=== PATIENT | male | born 1975 | race Caucasian/White ===

== ENCOUNTER 2017-12-14 15:49 | Emergency (ER) | payer OTHER ==
[2017-12-14 16:11] VITALS: BP 145/100; PULSE 103; RESP 18; TEMP 98.2; O2SAT 98
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
== END 2017-12-14 16:58 | disposition home or self-care (01) ==
LOC: C.ER 15:49
DX: N48.89 Other specified disorders of penis (principal)

== ENCOUNTER 2018-10-06 09:32 | Emergency (ER) | payer OTHER ==
[2018-10-06 09:34] VITALS: BMI 29.7
[2018-10-06 09:40] VITALS: RESP 18
[2018-10-06] MEDS ORDERED: Sodium Chloride 0.9% 1,000 ML IV STA (10:27)
[2018-10-06] MEDS ORDERED: Sodium Chloride 0.9% 250 ML IV ONE (10:48)
[2018-10-06 11:01] LABS: HEMOGLOBIN 16.9 g/dL (12.0-18.0); LYMPH # 1.5 K/uL (1.0-4.3); LYMPH % 32.8 % (20.0-40.0); MEAN CELL VOLUME 82.3 fL (80.0-94.0); MEAN CORPUSCULAR HEMOGLOBIN 27.6 pg (27.0-31.0); MEAN CORPUSCULAR HGB CONC 33.6 g/dL (33.0-37.0); MEAN PLATELET VOLUME 8.8 fL (7.2-11.7); MONO # 0.4 K/uL (0.0-0.8); MONO % 8.6 % (0.0-10.0); NEUT # 2.7 K/uL (1.8-7.0); NEUT % 56.6 % (50.0-75.0); NRBC % 0.1 % (0.0-2.0); RBC 6.12 Mil/uL (4.40-5.90); WHITE BLOOD COUNT 4.7 K/uL (4.8-10.8)
[2018-10-06 11:11] LABS: INR 1.1; PROTHROMBIN TIME 11.9 SECONDS (9.7-12.2)
[2018-10-06 11:23] LABS: ALB/GLOB RATIO 1.4 (1.0-2.1); ALBUMIN 4.8 g/dL (3.5-5.0); ALT/SGPT 38 U/L (21-72); AST/SGOT 33 U/L (17-59); BLOOD UREA NITROGEN 15 mg/dL (9-20); CALCIUM 9.4 mg/dl (8.6-10.4); GFR NON-AFRICAN AMERICAN > 60
--- NOTE | 2018-10-06 12:26 | C.PDOC ---
History Of Present Illness 43 year old male presents to the ED complaining of pain to the right elbow for 3 days status post pulling an object. States he noted bruising to the medial part of the forearm and elbow region. Notes pain when flexing elbow. Denies any numbness, weakness, or tingling of right arm. Denies any other complaints. Denies taking any medications for the pain. Time Seen by Provider: 10/06/18 09:49 Chief Complaint (Nursing): Upper Extremity Problem/Injury History Per: Patient History/Exam Limitations: no limitations Onset/Duration Of Symptoms: Days Current Symptoms Are (Timing): Still Present Quality: "Pain" Exacerbating Factor(s): Movement Past Medical History Reviewed: Historical Data, Nursing Documentation, Vital Signs Vital Signs: Last Vital Signs Temp 99.5 F 10/06/18 09:34 Pulse 84 10/06/18 09:34 Resp 18 10/06/18 09:34 BP 128/89 10/06/18 09:34 Pulse Ox 98 10/06/18 09:34 - Medical History PMH: HTN, Hypercholesterolemia Surgical History: No Surg Hx - [facility] Procedures CLOSURE SKIN & SUBCUTANEOUS NEC (02/19/14) TETANUS TOXOID ADMINIST (02/19/14) Family History: States: No Known Family Hx - Social History Hx Tobacco Use: No Hx Alcohol Use: No Hx Substance Use: No - Immunization History Hx Tetanus Toxoid Vaccination: No Hx Influenza Vaccination: No Hx Pneumococcal Vaccination: No Review Of Systems Except As Marked, All Systems Reviewed And Found Negative. Constitutional: Negative for: Fever, Chills Musculoskeletal: Positive for: Other (pain and bruising to right elbow ) Neurological: Negative for: Weakness, Numbness Physical Exam - Physical Exam Appears: Non-toxic, No Acute Distress Skin: Warm, Dry, Ecchymosis (medial part of elbodistal part of upper arm and proximal part of forearm ) Head: Normacephalic Neck: Supple Cardiovascular: Rhythm Regular Respiratory: Normal Breath Sounds, No Rales, No Rhonchi, No Wheezing Extremity: No Normal ROM (decreased ROM secondary to painin the elbow area), Tenderness (over distal part of biceps, no bony tenderness), No Deformity, Other (right biceps more prominent than left biceps, no displacement noted ) Pulses: Left Brachial: Normal, Right Brachial: Normal, Left Radial: Normal, Right Radial: Normal Neurological/Psych: Oriented x3, Normal Speech, Normal Cognition, Normal Motor, Normal Sensation Gait: Steady ED Course And Treatment - Laboratory Results Result Diagrams: 10/06/18 10:52 10/06/18 10:52 Lab Results: PT 11.9 SECONDS (9.7-12.2) 10/06/18 10:52 INR 1.1 10/06/18 10:52 APTT 38 SECONDS (21-34) H 10/06/18 10:52 Total Bilirubin 0.9 mg/dL (0.2-1.3) 10/06/18 10:52 AST 33 U/L (17-59) 10/06/18 10:52 ALT 38 U/L (21-72) 10/06/18 10:52 Alkaline Phosphatase 63 U/L (38-126) 10/06/18 10:52 Total Protein 8.2 g/dL (6.3-8.3) 10/06/18 10:52 Albumin 4.8 g/dL (3.5-5.0) 10/06/18 10:52 Globulin 3.3 gm/dL (2.2-3.9) 10/06/18 10:52 Albumin/Globulin Ratio 1.4 (1.0-2.1) 10/06/18 10:52 O2 Sat by Pulse Oximetry: 98 (RA) Pulse Ox Interpretation: Normal - CT Scan/US CT URE Other Rad Studies (CT/US): Read By Radiologist, Radiology Report Reviewed CT/US Interpretation: Accession No. : [id number]. Patient Name / ID : GORDON GIMENEZ / [id number]. Exam Date : 10/06/2018 11:26:12 ( Approved ). Study Comment : Sex / Age : M / 43Y. Creator : Dominga Pederson. Dictator : Miles Florian MD. Retrimmer : Criminal Psychologist : Miles Florian MD. Approver2 : Report Date : 10/06/2018 12:25:17. My Comment : . Date of service: 10/06/2018. PROCEDURE: RIGHT UPPER EXTREMITY CT WITHOUT CONTRAST. HISTORY: pain, ecchymosis, ? partial biceps rupture. COMPARISON: None available. TECHNIQUE: A volumetric CT acquisition through the right upper arm has been performed from the shoulder to elbow without intravenous contrast. Reformatted dataset have been provided for interpretation. Contrast Dose: None. Radiation dose:Total exam DLP = 831.41 mGy-cm. This CT exam was performed using one or more of the following dose reduction techniques: Automated exposure control, adjustment of the mA and/or kV according to patient size, and/or use of iterative reconstruction technique. FINDINGS: Unfortunate, definition of the biceps muscle and tendon is quite poor in this exam which is not unusual for CT, and therefore even a full-thickness biceps tear would be difficult to exclude on the basis of this study. No local reactive changes are appreciated associated with the proximal and distal tendons and tendon tear is not suspected. Standard of care would be for follow-up MRI for far greater soft tissue resolution capability. The humerus is intact without fracture or destructive bony lesion appreciated. No subluxation or dislocation of the right shoulder or elbow joints. No large joint effusion appreciable. IMPRESSION: MRI is advised for added characterization of the biceps tendon complex in the right upper extremity due to lack of adequate tissue resolution to exclude tear of the biceps or other muscle groups at the right upper extremity. No fracture or destructive bony lesion. No dislocation. Progress Note: CT of upper right extremity ordered. Patient treated with fluids. Blood collected and sent to the lab for analysis. Arm sling was applied. Patient was referred to Ortho. Ct didn't show any fractures, suboptimal study for soft tissue evaluation. Disposition - Disposition Referrals: Asim Hernandez III, MD [Staff Provider] - Disposition: HOME/ ROUTINE Disposition Time: 13:40 Condition: STABLE Additional Instructions: Follow up with PMD and Orthopedist within 1-2 days. Return to ED if feel worse. Instructions: Biceps Tendon Rupture Forms: [facility] (Spanish) - Clinical Impression Clinical Impression: Arm injury - PA / TRIAL LAWYER / Resident Statement MD/DO has reviewed & agrees with the documentation as recorded. - Scribe Statement The provider has reviewed the documentation as recorded by the Scribananth Quintanilla All medical record entries made by the Scribe were at my direction and personally dictated by me. I have reviewed the chart and agree that the record accurately reflects my personal performance of the history, physical exam, medical decision making, and the department course for this patient. I have also personally directed, reviewed, and agree with the discharge instructions and disposition.
--- NOTE | 2018-10-06 12:45 | CT ---
Date of service: 10/06/2018 PROCEDURE: RIGHT UPPER EXTREMITY CT WITHOUT CONTRAST HISTORY: pain, ecchymosis, ? partial biceps rupture COMPARISON: None available. TECHNIQUE: A volumetric CT acquisition through the right upper arm has been performed from the shoulder to elbow without intravenous contrast. Reformatted dataset have been provided for interpretation. Contrast Dose: None Radiation dose:Total exam DLP = 831.41 mGy-cm. This CT exam was performed using one or more of the following dose reduction techniques: Automated exposure control, adjustment of the mA and/or kV according to patient size, and/or use of iterative reconstruction technique. FINDINGS: Unfortunate, definition of the biceps muscle and tendon is quite poor in this exam which is not unusual for CT, and therefore even a full-thickness biceps tear would be difficult to exclude on the basis of this study. No local reactive changes are appreciated associated with the proximal and distal tendons and tendon tear is not suspected. Standard of care would be for follow-up MRI for far greater soft tissue resolution capability. The humerus is intact without fracture or destructive bony lesion appreciated. No subluxation or dislocation of the right shoulder or elbow joints. No large joint effusion appreciable. IMPRESSION: MRI is advised for added characterization of the biceps tendon complex in the right upper extremity due to lack of adequate tissue resolution to exclude tear of the biceps or other muscle groups at the right upper extremity. No fracture or destructive bony lesion. No dislocation.
[2018-10-06 13:54] VITALS: BP 155/90; PULSE 79; TEMP 97.3
[2018-10-06 16:24] VITALS: O2SAT 98
== END 2018-10-06 13:53 | disposition home or self-care (01) ==
LOC: C.ER 09:32
DX: S50.11XA Contusion of right forearm, initial encounter (principal); X58.XXXA Exposure to other specified factors, initial encounter
CPT/HCPCS: 73200; 80053; 85025; 85610; 85730; 96360; 99284; J7030

== ENCOUNTER 2018-10-11 11:26 | Emergency (ER) | payer OTHER ==
[2018-10-11 11:26] VITALS: BMI 29.7
== END 2018-10-11 11:40 | disposition left against medical advice (07) ==
LOC: C.ER 11:26
DX: Z02.89 Encounter for other administrative examinations (principal); M79.603 Pain in arm, unspecified